=== PATIENT | male | born 1990 | race Two or more races ===

== ENCOUNTER 2025-01-06 19:13 | Emergency (ER) | payer MEDICAID ==
[~2025-01-06] VITALS: Ht 177.8 cm; Wt 83.9 kg
[2025-01-06 19:24] VITALS: TEMP 36.7; O2SAT 98
[2025-01-06] MEDS: ACETAMINOPHEN 500MG TABLET PO ONE (21:40)
[2025-01-06] MEDS: TETANUS, DIPHTHERIA, PERTUSSIS VAC/PF 0.5ML (>10YR OLD) IM ONE (21:41)
[2025-01-06 21:45] LABS: BASOPHILS % 0.6 % (0.0-2.0); EOSINOPHILS % 1.1 % (0.0-5.0); HEMATOCRIT. 44.9 % (42.0-52.0); HEMOGLOBIN. 15.2 g/dL (14.0-18.0); LYMPHOCYTES % 20.1 % (20.0-50.0); MEAN CORPUSCULAR HEMOGLOBIN 28.6 pg (28.0-32.0); MEAN CORPUSCULAR HGB CONC 33.9 g/dL (31.0-37.0); MEAN CORPUSCULAR VOLUME 84.5 fL (80.0-94.0); MEAN PLATELET VOLUME 8.1 fl (7.4-10.4); MONOCYTES % 8.8 % (2.0-8.0); NEUTROPHILS % 69.4 % (40.0-76.0); PLATELET 346 x1000/uL (130-400); RED BLOOD CELL COUNT 5.32 mill/uL (4.7-6.1); WHITE BLOOD COUNT 10.4 x1000/uL (4.5-11.0)
[2025-01-06 22:00] LABS: CHLORIDE 100 mEq/L (98-107); POTASSIUM 3.7 mEq/L (3.5-5.1); SODIUM 137 mEq/L (136-145)
[2025-01-06 22:01] LABS: CALCIUM 9.1 mg/dL (8.7-10.4); CARBON DIOXIDE 25 mEq/L (21-32)
[2025-01-06 22:06] LABS: CREATININE 0.9 mg/dL (0.6-1.3); GLUCOSE 99 mg/dL (70-105); UREA NITROGEN BLOOD 11 mg/dL (9-23)
[2025-01-06] MEDS ORDERED: IBUP-2029 MT (23:43)
[2025-01-07 00:01] VITALS: BP 130/85; PULSE 75; RESP 16; O2SAT 98
[2025-01-07] MEDS ORDERED: IOHEXOL-300 100 ML BOTTLE ONE (00:15)
== END 2025-01-07 00:02 | disposition home or self-care (01) ==
LOC: ER 19:13
DX: S20.219A Contusion of unspecified front wall of thorax, initial encounter (principal); S80.211A Abrasion, right knee, initial encounter; S00.81XA Abrasion of other part of head, initial encounter; S09.90XA Unspecified injury of head, initial encounter; W18.30XA Fall on same level, unspecified, initial encounter; Y93.89 Activity, other specified; Y92.89 Other specified places as the place of occurrence of the external cause; Y99.8 Other external cause status
CPT/HCPCS: 99285; 70450; 71045; 80048; 85025; 36415; 71260; 72125; 74177; 90715; 90471; Q9967 ×2